=== PATIENT | female | born 1985 | race Hispanic/Latino ===

== ENCOUNTER 2017-05-01 18:49 | Emergency (ER) | payer SELFPAY ==
[2017-05-01 19:04] VITALS: BP 126/82; PULSE 96; RESP 16; TEMP 98.2; O2SAT 98
--- NOTE | 2017-05-01 19:58 | ED PDOC ---
HPI: CCC, URI, Sore Throat Time Seen by Provider: 05/01/17 19:07 Chief Complaint (Nursing): Fever Chief Complaint (Provider): Cough, Congestion, Fever History Per: Patient History/Exam Limitations: no limitations Onset/Duration Of Symptoms: Hrs ("over 72 hours"), Days Current Symptoms Are (Timing): Still Present Additional Complaint(s): 31 y/o female presents to the ED complaining of cough, congestion, and fever, onset of "over 72 hours". Patient has been using motrin at home minimal relief. She further states that he rosacea is worsening since symptoms began. 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 She denies travel, hemoptysis, and chest pain. Past Medical History Reviewed: Historical Data, Nursing Documentation, Vital Signs Vital Signs: Last Vital Signs Temp 98.2 F 05/01/17 19:01 Pulse 96 H 05/01/17 19:01 Resp 16 05/01/17 19:01 BP 126/82 05/01/17 19:01 Pulse Ox 98 05/01/17 19:01 - Medical History PMH: No Chronic Diseases Denies: Chronic Kidney Disease - Surgical History Surgical History: No Surg Hx - Family History Family History: States: Unknown Family Hx - Social History Current smoker - smoking cessation education provided: No Ex-Smoker (has not smoked in the last 12 months): No Alcohol: None Drugs: Denies - Home Medications Home Medications: Ambulatory Orders Medication Instructions Recorded Amoxicillin/Clavulanate [Augmentin 1 tab PO BID #14 tab 06/22/16 875 MG-125 MG] Methylprednisolone [Medrol Dose 4 mg PO DAILY #21 mg 06/22/16 Pack (21 tabs)] Ibuprofen [Motrin Tab] 1 tab PO Q6 PRN #15 tab 07/05/16 Ofloxacin Ophth 0.3% [Ocuflox 2 drop OD Q6 #1 bottle 07/05/16 Ophth 0.3%] Benzonatate [Tessalon Perle] 100 mg PO Q8 PRN #30 capsule 05/01/17 Fluticasone Propionate [Flonase] 2 spr NS DAILY PRN #1 bottle 05/01/17 Pseudoephedrine HCl [Sudafed] 1 - 2 tab PO Q8 PRN #15 tablet 05/01/17 - Allergies Allergies/Adverse Reactions: Allergies Allergy/AdvReac Type Severity Reaction Status Date / Time No Known Allergies Allergy Verified 06/22/16 18:11 Review of Systems ROS Statement: Except As Marked, All Systems Reviewed And Found Negative Constitutional: Positive for: Fever ENT: Positive for: Nose Congestion Cardiovascular: Negative for: Chest Pain Respiratory: Positive for: Cough. Negative for: Hemoptysis Physical Exam - Reviewed Nursing Documentation Reviewed: Yes Vital Signs Reviewed: Yes - Physical Exam Skin: Positive for: Rash (erythema noted ot the malar area extending slightly to forehead) Eye Exam: Positive for: Normal appearance, EOMI, PERRL. Negative for: Periorbital swelling, Periorbital tenderness ENT: Positive for: Normal ENT Inspection Cardiovascular/Chest: Positive for: Regular Rate, Rhythm. Negative for: Murmur Respiratory: Positive for: Normal Breath Sounds. Negative for: Respiratory Distress Neurologic/Psych: Positive for: Alert, Oriented. Negative for: Motor/Sensory Deficits - ECG O2 Sat by Pulse Oximetry: 98 (RA) Pulse Ox Interpretation: Normal Medical Decision Making Medical Decision Making: Time: --20:00 Impression: --31y/o female with cough, congestion, and fever Plan: --take prescribe medicine Scribe Attestation: Documented by Michael Yoon acting as a scribe for CHRISTA Blake. Disposition - Clinical Impression Clinical Impression: Viral syndrome, Rosacea - Patient ED Disposition Is Patient to be Admitted: No - Disposition Disposition: Routine/Home Disposition Time: 20:05 Condition: STABLE Additional Instructions: Drink plenty of fluids. Follow up with PMD for further evaluation. Prescriptions: Benzonatate [Tessalon Perle] 100 mg PO Q8 PRN #30 capsule PRN Reason: Cough Fluticasone Propionate [Flonase] 2 spr NS DAILY PRN #1 bottle PRN Reason: Allergy Symptoms Pseudoephedrine HCl [Sudafed] 1 - 2 tab PO Q8 PRN #15 tablet PRN Reason: congestion Instructions: Viral Syndrome (ED) Forms: [employer] ([place]) Print Language: LAO
== END 2017-05-01 20:15 | disposition home or self-care (01) ==
LOC: H.ER 18:49
DX: B34.9 Viral infection, unspecified (principal); L71.9 Rosacea, unspecified